=== PATIENT | female | born 1965 | race Caucasian/White ===

== ENCOUNTER 2017-11-26 17:14 | Inpatient (IN) | payer BC ==
[~2017-11-26] VITALS: Ht 177.8 cm; Wt 85.0 kg
[2017-11-26] VITALS (13 sets, daily range): BP systolic 113–138; BP diastolic 58–73; PULSE 101–118; RESP 14–32; TEMP 98–100.2; O2SAT 91–100
[2017-11-26] MEDS: ETOMIDATE 40 MG/20 ML VIAL ONE ×2 (17:20→17:26)
[2017-11-26] MEDS: ETOMIDATE 20 MG/10 ML VIAL IV PUSH ONE ×2 (17:30→19:13)
[2017-11-26] MEDS ORDERED: SUCCINYLCHOLINE CHLORIDE 100 MG/5 ML SYRINGE IV PUSH ONE (17:30)
[2017-11-26] MEDS ORDERED: LORazepam 2 MG/ML VIAL IV PUSH ONE (17:45)
[2017-11-26] MEDS ORDERED: MIDAZOLAM HCL 5 MG/ML VIAL (1 ML) ONE (17:45)
[2017-11-26] MEDS ORDERED: PROPOFOL 500 MG/50 ML INJ 50 ML ONE (17:46)
[2017-11-26 18:26] LABS: AUTOMATED NEUTROPHIL # 13.3 TH/MM3 (1.8-7.7); BASOPHIL % 0.2 % (0.0-2.0); HEMATOCRIT 43.8 % (35.0-46.0); HEMOGLOBIN 14.7 GM/DL (11.6-15.3); LYMPH % 7.9 % (9.0-44.0); LYMPHOCYTE # 1.2 TH/MM3 (1.0-4.8); MEAN CELL VOLUME 100.9 FL (80.0-100.0); MEAN CORPUSCULAR HEMOGLOBIN 33.9 PG (27.0-34.0); MEAN CORPUSCULAR HGB CONC 33.6 % (32.0-36.0); MEAN PLATELET VOLUME 8.1 FL (7.0-11.0); MONO % 6.6 % (0.0-8.0); NEUT % 85.3 % (16.0-70.0); PLATELET COUNT 374 TH/MM3 (150-450); RED BLOOD COUNT 4.34 MIL/MM3 (4.00-5.30); RED CELL DISTRIBUTION WIDTH 12.8 % (11.6-17.2); WHITE BLOOD COUNT 15.6 TH/MM3 (4.0-11.0)
[2017-11-26 18:27] LABS: BILIRUBIN, URINE NEG (NEG); BLOOD, URINE NEG (NEG); GLUCOSE,URINE NEG (NEG); KETONE, URINE NEG (NEG); NITRITE,URINE NEG (NEG); PH, URINE 5.5 (5.0-8.5); URINE COLOR LIGHT-YELLOW (YELLW/STRAW); URINE LEUKOCYTE ESTERASE NEG (NEG)
--- NOTE | 2017-11-26 18:27 | RADRPT ---
EXAM DATE/TIME: 11/26/2017 17:58 [facility] COMPARISON: No previous studies available for comparison. INDICATIONS : Post procedure. Pt intubated. MEDICAL HISTORY : None. SURGICAL HISTORY : None. ENCOUNTER: Initial ACUITY: 1 day PAIN SCORE: Non-responsive. LOCATION: Bilateral chest FINDINGS: A single view of the chest demonstrates left basilar consolidation. Right lung clear. Heart normal in size. Endotracheal tube 2.5 cm above the abi. Nasogastric tube tip in stomach. Osseous structure s are intact. CONCLUSION: 1. Adequate placement of endotracheal tube. 2. Left basal consolidation. Massimo Ervin MD on November 26, 2017 at 18:23 Board Certified Radiologist. This report was verified electronically.
[2017-11-26 18:32] LABS: INTERNATIONAL NORMALIZED RATIO 1.1 RATIO; PROTHROMBIN TIME - PATIENT 11.1 SEC (9.8-11.6)
[2017-11-26 18:42] LABS: CALCIUM 7.8 MG/DL (8.5-10.1); CHLORIDE 106 MEQ/L (98-107); SODIUM (NA) 143 MEQ/L (136-145)
[2017-11-26] MEDS ORDERED: FOLI400T PO (19:08)
[2017-11-26] MEDS ORDERED: VITA100T54 PO (19:08)
--- NOTE | 2017-11-26 19:12 | PD ---
HPI Chief Complaint: Altered Mental Status Time Seen by Provider: 17:26 Travel History International Travel<30 days: No Contact w/Intl Traveler<30days: No Traveled to known affect area: No History of Present Illness HPI 52-year-old female with right in by EMS from home for altered mental status. Patient's reported patient has been drinking alcohol all night last night. Patient started having altered mental status since last night. Patient' s is not sure of any other drugs involved. EMS was called. Patient was found to be very lethargic. Narcan IV was given. No response to Narcan. Patient was brought to the ED for evaluation. Upon arrival patient is unresponsive. No medical history was able to be obtained. [facility] Past Medical History Medical History: Unable to Obtain Diminished Hearing: No Tetanus Vaccination: Unknown Influenza Vaccination: No ?: Unknown Past Surgical History Surgical History: Unable to Obtain Social History Alcohol Use: Yes (ETOH ABUSE) Tobacco Use: No (UNRESPONSIVE ) Substance Use: No (UNKNOWN) Allergies-Medications (Allergen,Severity, Reaction): Coded Allergies: No Known Allergies (Unverified , 11/26/17) Review of Systems ROS Limitations: Altered Mental Status Physical Exam Narrative GENERAL: Well-nourished, well-developed patient. SKIN: Focused skin assessment warm/dry. HEAD: Normocephalic. EYES: No scleral icterus. No injection or drainage. Pupils 2 mm equal reactive. NECK: Supple, trachea midline. No JVD or lymphadenopathy. CARDIOVASCULAR: Regular rate and rhythm without murmurs, gallops, or rubs. RESPIRATORY: Breath sounds equal bilaterally. No accessory muscle use. Patient with agonal respiration. O2 saturation 89% on 100% nonrebreathing mask. GASTROINTESTINAL: Abdomen soft, non-tender, nondistended. MUSCULOSKELETAL: No cyanosis, or edema. BACK: Nontender without obvious deformity. No CVA tenderness. Neurologic exam: Patient is unresponsive. Data Data Last Documented VS Vital Signs Date Time Temp Pulse Resp B/P (MAP) Pulse Ox O2 Delivery O2 Flow Rate FiO2 11/26/17 18:43 95 60 11/26/17 17:58 101 18 138/73 (94) 11/26/17 17:25 Ventilator 11/26/17 17:17 98.0 Orders Orders Etomidate Inj (Amidate Inj) (11/26/17 17:20) Etomidate Inj (Amidate Inj) (11/26/17 17:30) Succinylcholine Inj (Quelicin Inj) (11/26/17 17:30) Midazolam Inj (Versed Inj) (11/26/17 17:45) Lorazepam Inj (Ativan Inj) (11/26/17 17:45) Propofol 500 Mg/50 Ml Inj (Diprivan 500 (11/26/17 17:46) Electrocardiogram (11/26/17 17:30) Complete Blood Count With Diff (11/26/17 17:30) Comprehensive Metabolic Panel (11/26/17 17:30) Creatine Kinase (Cpk) (11/26/17 17:30) Troponin I (11/26/17 17:30) Prothrombin Time / Inr (Pt) (11/26/17:30) Act Partial Throm Time (Ptt) (11/26/17 17:30) Urinalysis - C+S If Indicated (11/26/17 17:30) Beta Hcg (Quant/Titer) (11/26/17 17:30) Thyroid Stimulating Hormone (11/26/17 17:30) Chest, Single Ap (11/26/17 17:30) Ct Brain W/O Iv Contrast(Rout) (11/26/17 17:30) Drug Screen, Random Urine (11/26/17 17:30) Alcohol (Ethanol) (11/26/17 17:30) Salicylates (Aspirin) (11/26/17 17:30) Tylenol (Acetaminophen) (11/26/17 17:30) Urinary Catheter Insert/Apply (11/26/17 18:37) Labs Laboratory Tests Test 11/26/17 17:25 11/26/17 18:00 White Blood Count 15.6 TH/MM3 Red Blood Count 4.34 MIL/MM3 Hemoglobin 14.7 GM/DL Hematocrit 43.8 % Mean Corpuscular Volume 100.9 FL Mean Corpuscular Hemoglobin 33.9 PG Mean Corpuscular Hemoglobin Concent 33.6 % Red Cell Distribution Width 12.8 % Platelet Count 374 TH/MM3 Mean Platelet Volume 8.1 FL Neutrophils (%) (Auto) 85.3 % Lymphocytes (%) (Auto) 7.9 % Monocytes (%) (Auto) 6.6 % Eosinophils (%) (Auto) 0.0 % Basophils (%) (Auto) 0.2 % Neutrophils # (Auto) 13.3 TH/MM3 Lymphocytes # (Auto) 1.2 TH/MM3 Monocytes # (Auto) 1.0 TH/MM3 Eosinophils # (Auto) 0.0 TH/MM3 Basophils # (Auto) 0.0 TH/MM3 CBC Comment DIFF FINAL Differential Comment Prothrombin Time 11.1 SEC Prothromb Time International Ratio 1.1 RATIO Activated Partial Thromboplast Time 25.0 SEC Calcium Level 7.8 MG/DL Sodium Level 143 MEQ/L Potassium Level 3.7 MEQ/L Chloride Level 106 MEQ/L Urine Color LIGHT-YELLOW Urine Turbidity CLEAR Urine pH 5.5 Urine Specific [place] 1.004 Urine Protein NEG mg/dL Urine Glucose (UA) NEG mg/dL Urine Ketones NEG mg/dL Urine Occult Blood NEG Urine Nitrite NEG Urine Bilirubin NEG Urine Urobilinogen LESS THAN 2.0 MG/DL Urine Leukocyte Esterase NEG Microscopic Urinalysis Comment CULT NOT INDICATED Urine Opiates Screen NEG Urine Barbiturates Screen NEG Urine Amphetamines Screen NEG Urine Benzodiazepines Screen NEG Urine Cocaine Screen NEG Urine Cannabinoids Screen NEG MDM Medical Decision Making Medical Screen Exam Complete: Yes Emergency Medical Condition: Yes Interpretation(s) Last Impressions Chest X-Ray 11/26/17 1730 Signed Impressions: Service Date/Time: Sunday, November 26, 2017 17:58 - CONCLUSION: 1. Adequate placement of endotracheal tube. 2. Left basal consolidation. Massimo Ervin MD CBC WBC 15.6. Hemoglobin 14.7 hematocrit 43.8. MCV 100.9. 85 neutrophil. Urine drug screen negative. UA is negative. Differential Diagnosis Differential diagnosis including respiratory failure, drug overdose, TIA, CVA, electrolyte imbalance, dehydration. Narrative Course 52-year-old female was found unresponsive at home. EMS was called. Patient with gait was given Narcan without relief. Patient was intubated in the ED. Rocephin 1 g IV. Vancomycin 1 g IV. Critical Care Narrative Aggregate critical care time was 60 minutes. Time to perform other separately billable procedures was not included in the critical care time. My time did not include minutes spent treating any other patients simultaneously or on activities that did not directly contribute to the patient's treatment. The services I provided to this patient were to treat and/or prevent clinically significant deterioration that could result in: I provided critical care services requiring my management, as noted below: Chart data review, documentation time, medication orders and management, vital sign assessments/reviewing monitor data, ordering and reviewing lab tests, ordering and interpreting/reviewing x-rays and diagnostic studies, care of the patient and discussion of the patient with the admitting physicians. Diagnosis Primary Impression: Respiratory failure Qualified Codes: J96.01 - Acute respiratory failure with hypoxia Additional Impression: Pneumonia Qualified Codes: J18.1 - Lobar pneumonia, unspecified organism Admitting Information Admitting Physician Requests: Admit Aaron Hopper MD Nov 26, 2017 19:12
[2017-11-26] MEDS ORDERED: cefTRIAXone INJ 1,000 MG in SODIUM CHLORIDE 0.9% INJ 100 ML IV ONE (19:15)
[2017-11-26] MEDS ORDERED: VANCOMYCIN INJ 1,000 MG in SODIUM CHLOR 0.9% 250 ML INJ 250 ML IV ONE (19:15)
[2017-11-26] MEDS: SODIUM CHLOR 0.9% 1000 ML INJ 1,000 ML IV SCH (19:28)
[2017-11-26] MEDS ORDERED: POTASSIUM CHLOR 40 MEQ PREMIX 100 ML IV PRN ×2 (19:30)
[2017-11-26] MEDS ORDERED: POTASSIUM CHLOR 20 MEQ PREMIX 100 ML IV PRN ×2 (19:30)
[2017-11-26] MEDS ORDERED: DEXTROSE 50% IN WATER 50 ML VIAL(D50) IV PUSH PRN (19:30)
[2017-11-26] MEDS ORDERED: ONDANSETRON HCL 4 MG/2 ML VIAL IV PUSH PRN (19:30)
[2017-11-26] MEDS ORDERED: MAGNESIUM OXIDE 400 MG TAB PO PRN (19:30)
[2017-11-26] MEDS ORDERED: LACTULOSE SYRUP 20 GM/30 ML CUP PO PRN (19:30)
[2017-11-26] MEDS ORDERED: MAGNESIUM SULFATE INJ 2 GM in SODIUM CHLORIDE 0.9% INJ 96 ML IV PRN (19:30)
[2017-11-26] MEDS ORDERED: NURSING INFORMATION XX SCH (19:30)
[2017-11-26] MEDS ORDERED: CHLORHEXIDINE GLUCONATE 2 % 1 PACK (2 CLOTHS) TOP PRN (19:30)
[2017-11-26] MEDS ORDERED: PROPOFOL 1000 MG/100 ML INJ 100 ML IV PRN (19:30)
[2017-11-26] MEDS ORDERED: POTASSIUM PHOSPHATE MONOBASIC 500 MG TAB PO PRN (19:30)
[2017-11-26] MEDS ORDERED: fentaNYL DRIP 250 ML IV PRN (19:30)
[2017-11-26] MEDS ORDERED: MAGNESIUM HYDROXIDE SUSP 30 ML CUP PO PRN (19:30)
[2017-11-26] MEDS ORDERED: BISACODYL 10 MG SUPP RECTAL PRN (19:30)
[2017-11-26] MEDS ORDERED: MAGNESIUM SULFATE INJ 4 GM in SODIUM CHLORIDE 0.9% INJ 92 ML IV PRN (19:30)
[2017-11-26] MEDS ORDERED: POTASSIUM PHOSPHATE INJ 30 MMOL in SODIUM CHLOR 0.9% 250 ML INJ 250 ML IV PRN (19:30)
[2017-11-26] MEDS ORDERED: POTASSIUM PHOSPHATE MONOBASIC 500 MG TAB PO/TUBE PRN (19:30)
[2017-11-26] MEDS ORDERED: SODIUM PHOSPHATE INJ 30 MMOL in SODIUM CHLOR 0.9% 250 ML INJ 240 ML IV PRN (19:30)
[2017-11-26] MEDS ORDERED: RESP: ALBUTEROL 2.5 MG/IPRATROPIUM 0.5 MG NEB (PRN) INH (19:30)
[2017-11-26] MEDS ORDERED: SENNOSIDES 8.6 MG TAB PO PRN (19:30)
--- NOTE | 2017-11-26 19:31 | HHI.HP ---
[facility] Service Critical Care Medicine Primary Care Physician Maurice Serrano M.D. Admission Diagnosis Respiratory failure. Pneumonia. Diagnosis: Chief Complaint: altered mental status Travel History International Travel<30 Days: No Contact w/Intl Traveler <30 Da: No Traveled to Known Affected Are: No History of Present Illness This is a 52-year-old female who is brought in by EMS for altered mental status. Per the ER physician's note, the agents has been reported that she had been drinking alcohol all last night and then has not woken up since that time. The patient's was unclear if there were other drugs involved per the ER note. On arrival to the emergency department, the patient was lethargic. IV Narcan did not improve the patient's mental status. Due to her acute obtundation as well as hypercarbic and hypoxic respiratory failure, she was emergently intubated in the emergency department. On my evaluation, the patient is intubated and obtunded. No additional information is available from the patient. Review of systems is unobtainable. Laboratory evidence the emergency department is significant for white blood cell count 15,000, anion gap elevated of 16, bicarb of 20, AST/ALT 68/27, GGT 93, CK of 1879, CK-MB of 16.3 with a normal MB ratio, troponin less than 0.02. Review of Systems ROS Limitations: Clinical Condition, Intubated, Altered Mental Status Past Family Social History Allergies: Coded Allergies: No Known Allergies (Unverified , 11/26/17) Past Medical History Unknown unobtainable secondary to clinical condition the patient Past Surgical History Unknown and unobtainable secondary clinical condition the patient Reported Medications Unknown unobtainable secondary to the clinical condition the patient Active Ordered Medications See MAR Family History Unknown and unobtainable secondary to clinical condition the patient Social History Per chart review, positive for EtOH. Otherwise unobtainable due to her clinical condition. Physical Exam Vital Signs Vital Signs Date Time Temp Pulse Resp B/P (MAP) Pulse Ox O2 Delivery O2 Flow Rate FiO2 11/26/17 19:09 118 16 121/61 (81) 95 Ventilator 60 11/26/17 18:43 95 60 11/26/17 17:58 101 18 138/73 (94) 98 11/26/17 17:25 108 14 132/69 (90) 99 Ventilator 60 11/26/17 17:23 60 11/26/17 17:20 100 Non-Rebreather 100 11/26/17 17:17 98.0 113 32 122/63 (82) 91 Physical Exam GENERAL: Middle-aged appearing female, lying in bed, intubated, sedated, obtunded HEENT: Normocephalic. Atraumatic. Pupils equal, round, reactive, conjugate. Mucous membranes are moist NECK: Trachea is midline. There is no JVD. CHEST: Equal chest rise. PRVC mode of ventilation. PEEP of 5. Rate of 15, tidal volume 500, FiO2 40%. SPO2 96%. CARDIOVASCULAR: Normal rate, regular rhythm. Sinus by telemetry. ABDOMEN: Soft, nontender, nondistended. No guarding. MUSCULOSKELETAL: Pulses 2+. No peripheral edema. NEUROLOGICAL: RASS -4. Intermittently moves all extremities spontaneously. Does not withdraw to pain. Does not follow commands. Positive corneals. Positive cough. Positive gag. Pupils are 2 mm, briskly reactive bilaterally Laboratory Laboratory Tests Test 11/26/17 17:25 11/26/17 18:00 White Blood Count 15.6 Red Blood Count 4.34 Hemoglobin 14.7 Hematocrit 43.8 Mean Corpuscular Volume 100.9 Mean Corpuscular Hemoglobin 33.9 Mean Corpuscular Hemoglobin Concent 33.6 Red Cell Distribution Width 12.8 Platelet Count 374 Mean Platelet Volume 8.1 Neutrophils (%) (Auto) 85.3 Lymphocytes (%) (Auto) 7.9 Monocytes (%) (Auto) 6.6 Eosinophils (%) (Auto) 0.0 Basophils (%) (Auto) 0.2 Neutrophils # (Auto) 13.3 Lymphocytes # (Auto) 1.2 Monocytes # (Auto) 1.0 Eosinophils # (Auto) 0.0 Basophils # (Auto) 0.0 CBC Comment DIFF FINAL Differential Comment Prothrombin Time 11.1 Prothromb Time International Ratio 1.1 Activated Partial Thromboplast Time 25.0 Calcium Level 7.8 Sodium Level 143 Potassium Level 3.7 Chloride Level 106 Salicylates Level LESS THAN 1.7 Urine Color LIGHT-YELLOW Urine Turbidity CLEAR Urine pH 5.5 Urine Specific [place] 1.004 Urine Protein NEG Urine Glucose (UA) NEG Urine Ketones NEG Urine Occult Blood NEG Urine Nitrite NEG Urine Bilirubin NEG Urine Urobilinogen LESS THAN 2.0 Urine Leukocyte Esterase NEG Microscopic Urinalysis Comment CULT NOT INDICATED Urine Opiates Screen NEG Urine Barbiturates Screen NEG Urine Amphetamines Screen NEG Urine Benzodiazepines Screen NEG Urine Cocaine Screen NEG Urine Cannabinoids Screen NEG Result Diagram: 11/26/17 1725 11/26/17 1725 Imaging Last Impressions Head CT 11/26/171729 Signed Impressions: Service Date/Time: Sunday, November 26, 2017 21:12 - CONCLUSION: No acute intracranial disease. Massimo Ervin MD Chest X-Ray 11/26/171729 Signed Impressions: Service Date/Time: Sunday, November 26, 2017 17:58 - CONCLUSION: 1. Adequate placement of endotracheal tube. 2. Left basal consolidation. Massimo Ervin MD Septic Shock Reassessment Septic shock perfusion: reassessment completed Caprini VTE Risk Assessment Caprini VTE Risk Assessment: Mod/High Risk (score >= 2) Caprini Risk Assessment Model Point Value = 1 Point Value = 2 Point Value = 3 Point Value = 5 Age 41-60 Minor surgery BMI > 25 kg/m2 Swollen legs Varicose veins or History of unexplained or recurrent spontaneous Oral contraceptives or hormone replacement Sepsis (< 1 month) Serious lung disease, including pneumonia (< 1 month) Abnormal pulmonary function Acute myocardial infarction Congestive heart failure (< 1 month) History of inflammatory bowel disease Medical patient at bed rest Age 61-74 Arthroscopic surgery Major open surgery (> 45 min) Laparoscopic surgery (> 45 min) Malignancy Confined to bed (> 72 hours) Immobilizing plaster cast Central venous access Age >= 75 History of VTE Family history of VTE Factor V Leiden Prothrombin [id number] Lupus anticoagulant Anticardiolipin antibodies Elevated serum homocysteine Heparin-induced thrombocytopenia Other congenital or acquired thrombophilia Stroke (< 1 month) Elective arthroplasty Hip, pelvis, or leg fracture Acute spinal cord injury (< 1 month) Prophylaxis Regimen Total Risk Factor Score Risk Level Prophylaxis Regimen 0-1 Low Early ambulation 2 Moderate Order ONE of the following: *Sequential Compression Device (SCD) *Heparin 5000 units SQ BID 3-4 Higher Order ONE of the following medications: *Heparin 5000 units SQ TID *Enoxaparin/Lovenox 40 mg SQ daily (WT < 150 kg, CrCl > 30 mL/min) *Enoxaparin/Lovenox 30 mg SQ daily (WT < 150 kg, CrCl > 10-29 mL/min) *Enoxaparin/Lovenox 30 mg SQ BID (WT < 150 kg, CrCl > 30 mL/min) AND/OR *Sequential Compression Device (SCD) 5 or more Highest Order ONE of the following medications: *Heparin 5000 units SQ TID (Preferred with Epidurals) *Enoxaparin/Lovenox 40 mg SQ daily (WT < 150 kg, CrCl > 30 mL/min) *Enoxaparin/Lovenox 30 mg SQ daily (WT < 150 kg, CrCl > 10-29 mL/min) *Enoxaparin/Lovenox 30 mg SQ BID (WT < 150 kg, CrCl > 30 mL/min) AND *Sequential Compression Device (SCD) Assessment and Plan Assessment and Plan Assessment: 52-year-old female with history of alcohol abuse who presents with acute toxic encephalopathy, acute hypoxic and hypercarbic respiratory failure, acute rhabdomyolysis, and acute anion gap metabolic acidosis. She remains critically ill. Will fluid hydrate her for her rhabdomyolysis. Calculated serum osmolarity 295 and we will await measured osmolarity to make sure there is not osmolar gap. Will empirically start IV thiamine given her suggestive history of alcohol abuse along with elevated GGT and transaminases. Remains critically ill. Plan by systems: Neurologic: Toxic encephalopathy Alcohol abuse Propofol and fentanyl for goal RASS -2 Frequent neurochecks Avoid long-acting sedatives Watch for alcohol withdrawal May need p.o. Librium or p.o. Valium to prevent delirium tremens CT brain 11/26- for acute disease MRI EEG Respiratory: Acute hypoxic and hypercarbic respiratory failure Aspiration pneumonia Wean FiO2 for goal SPO2 greater than 90% No weaning mechanical ventilation until neuro exam improves Nebs Head of bed elevated Vent bundle Cardiovascular: Continue telemetry Renal: Place Amaury in monitor I's and O's -- Strict I/Os FEN/GI: Acute rhabdomyolysis Possible alcoholic hepatitis N.p.o. ICU electrolyte protocol Trend CK Aggressive hydration Frequent urine output monitoring Daily BMP Heme/ID: Aspiration pneumonia Community-acquired, no suspicion for resistant bacteria Start Unasyn IV Follow-up sputum culture Follow-up blood cultures Daily CBC Endocrine: Hyperglycemia of critical illness -- SSI, medium scale, every 6 Prophylaxis: GI Prophylaxis Pepcid DVT Prophylaxis -- SCDs Lovenox Lines: Peripheral IVs are adequate at this time Place Amaury Dispo: Admit to ICU. Critically ill. This patient remains critically ill with one or more organ systems which are or may become a threat to life. I have spent in excess of 44 minutes discontinuously in the care and management of this patient. This time is exclusive of procedures, and includes, but is not limited to, evaluation of the patient, review of the medical record, discussions with family, consultants, nursing staff, or respiratory therapy, and documentation in the medical record. Deandre Muller MD Nov 26, 2017 19:31
[2017-11-26 19:50] LABS: ALBUMIN 3.5 GM/DL (3.4-5.0); ALKALINE PHOSPHATASE 79 U/L (45-117); ALT (GPT) 27 U/L (10-53); AST (GOT) 68 U/L (15-37); BICARBONATE 20.6 MEQ/L (21.0-32.0); BLOOD UREA NITROGEN 7 MG/DL (7-18); CREATININE 0.92 MG/DL (0.50-1.00); GLOMERULAR FILTRATION RATE 65 ML/MIN (>89); GLUCOSE,RANDOM 115 MG/DL (74-106); TOTAL PROTEIN 7.3 GM/DL (6.4-8.2)
[2017-11-26 19:51] LABS: ACETAMINOPHEN LESS THAN 2.0 MCG/ML (10.0-30.0); TROPONIN I LESS THAN 0.02 NG/ML (0.02-0.05)
[2017-11-26] MEDS: RESP: ALBUTEROL 2.5 MG/IPRATROPIUM 0.5 MG NEB (SCH) INH (20:10)
[2017-11-26] MEDS: PROPOFOL 1000 MG/100 ML INJ 100 ML IV PRN (20:16)
[2017-11-26] MEDS: LACTATED RINGER'S 1000 ML INJ 1,000 ML IV SCH (20:41)
[2017-11-26] MEDS ORDERED: MULTIVITAMIN INJ 10 ML, THIAMINE INJ 100 MG, FOLIC ACID INJ 1 MG in SODIUM CHLOR 0.45% ... IV ONE (21:00)
--- NOTE | 2017-11-26 21:28 | RADRPT ---
EXAM DATE/TIME: 11/26/2017 21:12 [facility] COMPARISON: No previous studies available for comparison. INDICATIONS : Unresponsive,altered mental status RADIATION DOSE: 56.35 CTDIvol (mGy) MEDICAL HISTORY : Non-responsive. SURGICAL HISTORY : Non-responsive. ENCOUNTER: Initial ACUITY: 1 day PAIN SCALE: Non-responsive LOCATION: cranial TECHNIQUE: Multiple contiguous axial images were obtained of the head. Using automated exposure control and adj ustment of the mA and/or kV according to patient size, radiation dose was kept as low as reasonably a chievable to obtain optimal diagnostic quality images. DICOM format image data is available electro nically for review and comparison. FINDINGS: CEREBRUM: The ventricles are normal for age. No evidence of midline shift, mass lesion, hemorrhage or acute in farction. No extra-axial fluid collections are seen. POSTERIOR FOSSA: The cerebellum and brainstem are intact. The 4th ventricle is midline. The cerebellopontine angle i s unremarkable. EXTRACRANIAL: The visualized portion of the orbits is intact. SKULL: The calvaria is intact. No evidence of skull fracture. CONCLUSION: No acute intracranial disease. Massimo Ervin MD on November 26, 2017 at 21:25 Board Certified Radiologist. This report was verified electronically.
[2017-11-26] MEDS: CHLORHEXIDINE 0.12% (ORAL KIT) 15 ML CUP MT SCH (21:56)
[2017-11-26] MEDS: DOCUSATE SODIUM 50 MG/SENNA 8.6 MG TAB PO SCH (22:21)
[2017-11-26] MEDS: AMPICILLIN-SULBACTAM INJ 3 GM in SODIUM CHLORIDE 0.9% INJ 100 ML IV SCH (22:21)
[2017-11-26] MEDS: FAMOTIDINE 20 MG TAB PO SCH (22:21)
[2017-11-26] MEDS: ENOXAPARIN SODIUM 40 MG/0.4 ML SYRINGE SQ SCH (22:45)
[2017-11-26] MEDS: CHLORHEXIDINE GLUCONATE 2 % 1 PACK (2 CLOTHS) TOP SCH (22:45)
[2017-11-26] MEDS: INSULIN NovoLIN REGULAR SUPPLEMENTAL SCALE SQ SCH (23:17)
[2017-11-27] VITALS (21 sets, daily range): BP systolic 122–156; BP diastolic 60–88; PULSE 75–132; RESP 14–32; TEMP 98.3–100.7; O2SAT 95–100
--- NOTE | 2017-11-27 00:09 | EKG ---
Date Performed: 11/26/2017 Time Performed: 18:30:54 PTAGE: 52 years EKG: Sinus rhythm MARKED LEFT AXIS DEVIATION POSSIBLE ANTERIOR MYOCARDIAL INFARCTION ABNORMAL ECG NO PREVIOUS TRACING DOCTOR: Amado Sanchez Interpretating Date/Time 11/27/2017 00:07:47
[2017-11-27] MEDS: PROPOFOL 1000 MG/100 ML INJ 100 ML IV PRN ×5 (00:18→12:09)
[2017-11-27 01:11] LABS: TROPONIN I LESS THAN 0.02 NG/ML (0.02-0.05)
[2017-11-27] MEDS: SODIUM CHLOR 0.9% 1000 ML INJ 1,000 ML IV SCH ×3 (02:47→18:43)
[2017-11-27] MEDS: THIAMINE INJ 100 MG in SODIUM CHLORIDE 0.9% INJ 100 ML IV SCH (02:48)
[2017-11-27] MEDS: AMPICILLIN-SULBACTAM INJ 3 GM in SODIUM CHLORIDE 0.9% INJ 100 ML IV SCH ×4 (02:48→20:08)
[2017-11-27 03:07] LABS: BACTERIA, URINE FEW /hpf; BILIRUBIN, URINE NEG (NEG); BLOOD, URINE NEG (NEG); GLUCOSE,URINE NEG (NEG); KETONE, URINE 80 mg/dL (NEG); MUCUS URINE FEW /lpf (OCC); NITRITE,URINE NEG (NEG); PH, URINE 5.5 (5.0-8.5); URINE COLOR YELLOW (YELLW/STRAW); URINE LEUKOCYTE ESTERASE LARGE (NEG); WHITE BLOOD CELL CLUMPS FEW
[2017-11-27 03:26] LABS: BICARBONATE 16.5 MEQ/L (21.0-32.0); CALCIUM 7.7 MG/DL (8.5-10.1); CREATININE 0.65 MG/DL (0.50-1.00)
[2017-11-27] MEDS ORDERED: DEXTROSE 5% IV ONE ×2 (03:30)
[2017-11-27] MEDS ORDERED: WATER IV ONE ×2 (03:30)
[2017-11-27] MEDS ORDERED: PYRIDOXINE HCL 100 MG/ML VIAL IV ONE ×2 (03:30)
[2017-11-27] MEDS ORDERED: FOMEPIZOLE IV ONE ×2 (03:30)
[2017-11-27] MEDS: RESP: ALBUTEROL 2.5 MG/IPRATROPIUM 0.5 MG NEB (SCH) INH ×4 (03:47→21:19)
--- NOTE | 2017-11-27 03:48 | HHI.CCPN ---
Subjective Remarks/Hospital Course Hospital Course: This is a 52-year-old female who is brought in by EMS for altered mental status. Per the ER physician's note, the agents has been reported that she had been drinking alcohol all last night and then has not woken up since that time. The patient's was unclear if there were other drugs involved per the ER note. On arrival to the emergency department, the patient was lethargic. IV Narcan did not improve the patient's mental status. Due to her acute obtundation as well as hypercarbic and hypoxic respiratory failure, she was emergently intubated in the emergency department. On my evaluation, the patient is intubated and obtunded. No additional information is available from the patient. Review of systems is unobtainable. Laboratory evidence the emergency department is significant for white blood cell count 15,000, anion gap elevated of 16, bicarb of 20, AST/ALT 68/27, GGT 93, CK of 1879, CK-MB of 16.3 with a normal MB ratio, troponin less than 0.02. Subjective: 11/27: patient is not clinically improving as we would expect. serum osmolality came back at 372 and calculated is 294, with an osmolar gap of 78. Lactate is elevated at 3.6. Bicarb is worsening to 16 with an anion gap of 16. I called and spoke at length to the : the patient likes to hide her vodka in juice bottles, so it is unclear to him exactly what she was drinking, but he thought it was vodka. there is no antifreeze in the home at all. the located all bottles of rubbing alcohol and fingernail turkmen remover and states they are full and there are no other empty bottles in the household currently. states she has no access to methanol and no access he knows of to moonshine. I did take a urine sample and examined it under Fu lamp and it appears to weakly fluoresce. Oxylate crystals are negative on u/a. BHB is positive at 0.8, suggesting this could be isopropyl alcohol ingestion. Discussed at length with poison control: given her worsening acidosis and her symptoms as well as an unexplained osmolar gap, we are going to empirically treat her for toxic alcohol ingestion/toxicity. We do not routinely carry fomepazole in the pharmacy, but we have located 3 vials and will start 15mg/kg iv load followed by 10mg/kg iv q12h. will check serial osm and osm gap. iv thiamine, pyridoxime , leucovorin. very critically ill. minimal improvements over last 12 hours. discussed condition with and reinforced the severity of her illness. Objective Vital Signs Date Time Temp Pulse Resp B/P (MAP) Pulse Ox O2 Delivery O2 Flow Rate FiO2 11/27/17 02:00 95 11/27/17 01:40 99 40 11/27/17 00:00 98.8 14 122/67 (85) 11/26/17 21:00 Ventilator Result Diagram: 11/26/17 6900 11/26/17 0890 Other Results Laboratory Tests Test 11/26/17 20:50 11/27/17 02:15 Blood Gas Puncture Site RT RADIAL RT RADIAL Blood Gas Patient Temperature 98.0 98.6 Blood Gas HCO3 21 mmol/L (22-26) 22 mmol/L (22-26) Blood Gas Base Excess -3.9 mmol/L (-2-2) -2.8 mmol/L (-2-2) Blood Gas Oxygen Saturation 93 % (90-100) 94 % (90-100) Arterial Blood pH 7.32 (7.380-7.420) 7.33 (7.380-7.420) Arterial Blood Partial Pressure CO2 42 mmHg (38-42) 43 mmHg (38-42) Arterial Blood Partial Pressure O2 83 mmHG (61-120) 88 mmHg (61-120) Arterial Blood Oxygen Content 19.5 Vol % (12.0-20.0) 18.4 Vol % (12.0-20.0) Arterial Blood Carboxyhemoglobin 1.0 % (0-4) 0.7 % (0-4) Arterial Blood Methemoglobin 0.8 % (0-2) 1.4 % (0-2) Blood Gas Hemoglobin 14.9 G/DL (12.0-16.0) 14.0 G/DL (12.0-16.0) Oxygen Delivery Device VENTILATOR VENTILATOR Blood Gas Ventilator Setting PRVC/AC Blood Gas Inspired Oxygen 60 % 40 % Imaging Last Impressions Head CT 11/26/17 0460 Signed Impressions: Service Date/Time: Sunday, November 26, 2017 21:12 - CONCLUSION: No acute intracranial disease. Massimo Ervin MD Chest X-Ray 11/26/17 1774 Signed Impressions: Service Date/Time: Sunday, November 26, 2017 17:58 - CONCLUSION: 1. Adequate placement of endotracheal tube. 2. Left basal consolidation. Massimo Ervin MD Objective Remarks GENERAL: Middle-aged appearing female, lying in bed, intubated, sedated, obtunded HEENT: Normocephalic. Atraumatic. Pupils equal, round, reactive, conjugate. Mucous membranes are moist NECK: Trachea is midline. There is no JVD. CHEST: Equal chest rise. PRVC mode of ventilation. PEEP of 5. Rate of 15, tidal volume 500, FiO2 40%. SPO2 99%. CARDIOVASCULAR: Normal rate, regular rhythm. Sinus by telemetry. ABDOMEN: Soft, nontender, nondistended. No guarding. MUSCULOSKELETAL: Pulses 2+. No peripheral edema. NEUROLOGICAL: RASS -4. Intermittently moves all extremities spontaneously. withdraws to pain. Does not follow commands. Positive corneals. Positive cough. Positive gag. Pupils are 2 mm, briskly reactive bilaterally A/P Assessment and Plan Assessment: 52-year-old female with history of alcohol abuse who presents with acute toxic encephalopathy, acute hypoxic and hypercarbic respiratory failure, acute rhabdomyolysis, and acute anion gap metabolic acidosis. She remains critically ill. Will treat for presumed toxic alcohol ingestion given osmolar gap, ?fluorescent urine, + ketones and acetone biproducts in the serum, and unexplained persistent metabolic acidosis. acute rhabdo persistent and uptrending: will continue to trend CK. appreciate poison control input. will give fomepazole until we no longer have any supply in pharmacy or until osmolar gap normalizes. Remains critically ill. Plan by systems: Neurologic: Toxic encephalopathy Alcohol abuse Presumed Toxic Alcohol ingestion: suspect isopropyl alcohol Propofol and fentanyl for goal RASS -2 Frequent neurochecks Avoid long-acting sedatives Watch for alcohol withdrawal May need p.o. Librium or p.o. Valium to prevent delirium tremens CT brain 11/26- for acute disease MRI EEG fomepazole 15mg/kg load, followed by 10mg/kg iv q12h. per poison control recommendations: hold off on iv ethanol infusion serial BMP, osm q6h. continue therapy until osmolar gap closes. Respiratory: Acute hypoxic and hypercarbic respiratory failure Aspiration pneumonia Wean FiO2 for goal SPO2 greater than 90% No weaning mechanical ventilation until neuro exam improves Nebs Head of bed elevated Vent bundle Cardiovascular: Continue telemetry Renal: Place Re[place] in monitor I's and O's -- Strict I/Os FEN/GI: Acute rhabdomyolysis- worsening Possible alcoholic hepatitis Acute metabolic acidosis lactic acidosis Osmolar gap suspected isopropyl alcohol ingestion/toxicity/overdose N.p.o. ICU electrolyte protocol Trend CK Aggressive hydration Frequent urine output monitoring q6h lactate, osm, ck, bmp treat for suspected toxic alcohol ingestion until calculated osmolar gap improves. Heme/ID: Aspiration pneumonia Community-acquired, no suspicion for resistant bacteria Start Unasyn IV Follow-up sputum culture Follow-up blood cultures Daily CBC Endocrine: Hyperglycemia of critical illness -- SSI, medium scale, every 6 Prophylaxis: GI Prophylaxis Pepcid DVT Prophylaxis -- SCDs Lovenox Lines: Peripheral IVs are adequate at this time Place [place] Dispo: remain in ICU. Critically ill. This patient remains critically ill with one or more organ systems which are or may become a threat to life. I have spent in excess of 78 minutes discontinuously in the care and management of this patient. This time is exclusive of procedures, and includes, but is not limited to, evaluation of the patient, review of the medical record, discussions with family, consultants, nursing staff, or respiratory therapy, and documentation in the medical record. extensive time spent in discussion with as well as poison control, pharmacy, nursing, lab. Deandre Muller MD Nov 27, 2017 03:48
[2017-11-27] MEDS ORDERED: LEUCOVORIN CALCIUM 50 MG VIAL IV PUSH SCH (04:00)
[2017-11-27] MEDS: LEUCOVORIN INJ 50 MG in SODIUM CHLORIDE 0.9% INJ 50 ML IV SCH ×4 (04:01→21:36)
[2017-11-27] MEDS: LACTATED RINGER'S 1000 ML INJ 1,000 ML IV SCH ×3 (04:01→20:08)
--- NOTE | 2017-11-27 04:11 | PD.PROCEDR ---
Procedure Note Procedure Procedure: Arterial Line Placement Left radial arterial line Diagnosis: Toxic encephalopathy Indications: Need for serial arterial blood sampling Consent: Emergent Description of the Procedure: The left wrist was prepped and draped sterilely. 1% lidocaine was used for local anesthesia. The pulse was located and a needle was advanced into the artery. A 20 gauge, 12 cm catheter was advanced into the artery using a modified Seldinger technique. The catheter was sutured to the skin and a sterile dressing was applied. The catheter was connected to a pressure transducer and an arterial waveform was noted. There were no immediate complications noted. There was minimal EBL. I personally performed the procedure. Deandre Muller MD Nov 27, 2017 04:11
[2017-11-27 04:37] LABS: HEMATOCRIT 39.2 % (35.0-46.0); HEMOGLOBIN 13.4 GM/DL (11.6-15.3); MEAN CORPUSCULAR HEMOGLOBIN 34.2 PG (27.0-34.0); MEAN CORPUSCULAR HGB CONC 34.2 % (32.0-36.0); MEAN PLATELET VOLUME 7.7 FL (7.0-11.0); PLATELET COUNT 301 TH/MM3 (150-450); RED BLOOD COUNT 3.92 MIL/MM3 (4.00-5.30); RED CELL DISTRIBUTION WIDTH 12.7 % (11.6-17.2); WHITE BLOOD COUNT 20.7 TH/MM3 (4.0-11.0)
[2017-11-27 05:17] LABS: CALCIUM 7.2 MG/DL (8.5-10.1); CREATININE 0.56 MG/DL (0.50-1.00)
[2017-11-27] MEDS: INSULIN NovoLIN REGULAR SUPPLEMENTAL SCALE SQ SCH ×4 (05:32→23:48)
[2017-11-27 05:36] LABS: CALCIUM-PROTEIN CORRECTED 7.5 MG/DL (8.5-10.1); TOTAL PROTEIN 6.5 GM/DL (6.4-8.2)
[2017-11-27] MEDS: POTASSIUM CHLORIDE 25 MEQ EFFERVESCENT TAB PO PRN (05:55)
[2017-11-27] MEDS: DOCUSATE SODIUM 50 MG/SENNA 8.6 MG TAB PO SCH ×2 (09:09→21:36)
[2017-11-27] MEDS: MULTIVITAMIN TAB PO SCH (09:09)
[2017-11-27] MEDS: FAMOTIDINE 20 MG TAB PO SCH ×2 (09:09→21:36)
[2017-11-27] MEDS: CHLORHEXIDINE 0.12% (ORAL KIT) 15 ML CUP MT SCH ×2 (09:10→20:08)
[2017-11-27 10:55] LABS: BICARBONATE 24.4 MEQ/L (21.0-32.0); CALCIUM 7.8 MG/DL (8.5-10.1); CREATININE 0.46 MG/DL (0.50-1.00)
--- NOTE | 2017-11-27 12:01 | RADRPT ---
EXAM DATE/TIME: 11/27/2017 11:17 [facility] COMPARISON: CT BRAIN W/O CONTRAST, November 26, 2017, 21:12. INDICATIONS : Found unresponsive. MEDICAL HISTORY : None. ETOH abuse. SURGICAL HISTORY : None. ENCOUNTER: Initial ACUITY: 2 day PAIN SCORE: 0/10 LOCATION: cranial TECHNIQUE: Multiplanar, multisequence MRI of the brain was performed without contrast. FINDINGS: CEREBRUM: The ventricles are normal for age. No evidence of midline shift, mass lesion, hemorrhage or acute in farction. No extraaxial fluid collections are seen. The pituitary gland and suprasellar cistern are normal in configuration. WHITE MATTER: No significant signal abnormalities are seen in the white matter. POSTERIOR FOSSA: The cerebellum and brainstem are intact. The 4th ventricle is midline. The cerebellopontine angle is unremarkable. The cerebellar tonsils are normal in position. DIFFUSION IMAGING: No focal areas of restricted diffusion are seen. No evidence of acute infarction. EXTRACRANIAL: The visualized portions of the orbits and paranasal sinuses are unremarkable. CONCLUSION: Normal examination. Mariano Flaherty MD on November 27, 2017 at 11:57 Board Certified Radiologist. This report was verified electronically.
[2017-11-27] MEDS ORDERED: DEXTROSE 5% IV SCH ×2 (16:00)
[2017-11-27] MEDS ORDERED: WATER IV SCH ×2 (16:00)
[2017-11-27] MEDS ORDERED: FOMEPIZOLE IV SCH ×2 (16:00)
[2017-11-27 17:27] LABS: BICARBONATE 26.9 MEQ/L (21.0-32.0); CREATININE 0.5 MG/DL (0.50-1.00)
[2017-11-27] MEDS: ENOXAPARIN SODIUM 40 MG/0.4 ML SYRINGE SQ SCH (21:36)
[2017-11-27 23:36] LABS: BICARBONATE 29.9 MEQ/L (21.0-32.0); CALCIUM 8.1 MG/DL (8.5-10.1); CREATININE 0.55 MG/DL (0.50-1.00)
[2017-11-28] VITALS (16 sets, daily range): BP systolic 128–164; BP diastolic 66–84; PULSE 93–125; RESP 13–20; TEMP 98.4–99.2; O2SAT 92–97
[2017-11-28] MEDS: THIAMINE INJ 100 MG in SODIUM CHLORIDE 0.9% INJ 100 ML IV SCH (01:33)
[2017-11-28] MEDS: LACTATED RINGER'S 1000 ML INJ 1,000 ML IV SCH ×2 (03:22→15:32)
[2017-11-28] MEDS: AMPICILLIN-SULBACTAM INJ 3 GM in SODIUM CHLORIDE 0.9% INJ 100 ML IV SCH ×4 (03:22→21:06)
[2017-11-28] MEDS: LEUCOVORIN INJ 50 MG in SODIUM CHLORIDE 0.9% INJ 50 ML IV SCH (04:15)
[2017-11-28] MEDS: CHLORHEXIDINE GLUCONATE 2 % 1 PACK (2 CLOTHS) TOP SCH (04:16)
[2017-11-28] MEDS: RESP: ALBUTEROL 2.5 MG/IPRATROPIUM 0.5 MG NEB (SCH) INH ×4 (04:53→21:53)
[2017-11-28 05:42] LABS: HEMATOCRIT 38.1 % (35.0-46.0); HEMOGLOBIN 12.9 GM/DL (11.6-15.3); MEAN CELL VOLUME 100.5 FL (80.0-100.0); MEAN CORPUSCULAR HEMOGLOBIN 34.1 PG (27.0-34.0); MEAN CORPUSCULAR HGB CONC 33.9 % (32.0-36.0); MEAN PLATELET VOLUME 7.9 FL (7.0-11.0); PLATELET COUNT 230 TH/MM3 (150-450); RED BLOOD COUNT 3.79 MIL/MM3 (4.00-5.30); RED CELL DISTRIBUTION WIDTH 12.5 % (11.6-17.2); WHITE BLOOD COUNT 19.1 TH/MM3 (4.0-11.0)
[2017-11-28] MEDS: INSULIN NovoLIN REGULAR SUPPLEMENTAL SCALE SQ SCH ×3 (06:00→18:00)
[2017-11-28 06:02] LABS: BICARBONATE 26.9 MEQ/L (21.0-32.0); CALCIUM 8.5 MG/DL (8.5-10.1); CREATININE 0.48 MG/DL (0.50-1.00)
[2017-11-28] MEDS: CHLORHEXIDINE 0.12% (ORAL KIT) 15 ML CUP MT SCH ×2 (08:00→20:00)
--- NOTE | 2017-11-28 08:24 | HHI.CCPN ---
Subjective Remarks/Hospital Course Hospital Course: This is a 52-year-old female who is brought in by EMS for altered mental status. Per the ER physician's note, the agents has been reported that she had been drinking alcohol all last night and then has not woken up since that time. The patient's was unclear if there were other drugs involved per the ER note. On arrival to the emergency department, the patient was lethargic. IV Narcan did not improve the patient's mental status. Due to her acute obtundation as well as hypercarbic and hypoxic respiratory failure, she was emergently intubated in the emergency department. On my evaluation, the patient is intubated and obtunded. No additional information is available from the patient. Review of systems is unobtainable. Laboratory evidence the emergency department is significant for white blood cell count 15,000, anion gap elevated of 16, bicarb of 20, AST/ALT 68/27, GGT 93, CK of 1879, CK-MB of 16.3 with a normal MB ratio, troponin less than 0.02. Subjective: 11/27: patient is not clinically improving as we would expect. serum osmolality came back at 372 and calculated is 294, with an osmolar gap of 78. Lactate is elevated at 3.6. Bicarb is worsening to 16 with an anion gap of 16. I called and spoke at length to the : the patient likes to hide her vodka in juice bottles, so it is unclear to him exactly what she was drinking, but he thought it was vodka. there is no antifreeze in the home at all. the located all bottles of rubbing alcohol and fingernail greenlandic remover and states they are full and there are no other empty bottles in the household currently. states she has no access to methanol and no access he knows of to moonshine. I did take a urine sample and examined it under Fu lamp and it appears to weakly fluoresce. Oxylate crystals are negative on u/a. BHB is positive at 0.8, suggesting this could be isopropyl alcohol ingestion. Discussed at length with poison control: given her worsening acidosis and her symptoms as well as an unexplained osmolar gap, we are going to empirically treat her for toxic alcohol ingestion/toxicity. We do not routinely carry fomepazole in the pharmacy, but we have located 3 vials and will start 15mg/kg iv load followed by 10mg/kg iv q12h. will check serial osm and osm gap. iv thiamine, pyridoxine , leucovorin. very critically ill. minimal improvements over last 12 hours. discussed condition with and reinforced the severity of her illness. 11/28 Patient was extubated last night. Awake and alert. afebrile. Objective Vital Signs Date Time Temp Pulse Resp B/P (MAP) Pulse Ox O2 Delivery O2 Flow Rate FiO2 11/28/17 06:00 108 11/28/17 04:00 98.4 13 130/66 (87) 97 150/76 (100) 11/27/17 21:19 Nasal Cannula 3.00 11/27/17 19:18 40 Intake and Output 11/28/17 11/28/17 11/29/17 08:00 16:00 00:00 Intake Total 151 ml Output Total 1800 ml Balance -1649 ml Result Diagram: 11/28/17 0530 11/28/17 0530 Other Results Laboratory Tests Test 11/27/17 10:31 11/27/17 16:50 11/27/17 17:18 11/27/17 23:00 Blood Urea Nitrogen 5 MG/DL 5 MG/DL 5 MG/DL Creatinine 0.46 MG/DL 0.50 MG/DL 0.55 MG/DL Random Glucose 108 MG/DL 120 MG/DL 132 MG/DL Calcium Level 7.8 MG/DL 8.0 MG/DL 8.1 MG/DL Sodium Level 143 MEQ/L 141 MEQ/L 140 MEQ/L Potassium Level 3.8 MEQ/L 3.7 MEQ/L 3.6 MEQ/L Chloride Level 108 MEQ/L 105 MEQ/L 105 MEQ/L Carbon Dioxide Level 24.4 MEQ/L 26.9 MEQ/L 29.9 MEQ/L Anion Gap 11 MEQ/L 9 MEQ/L 5 MEQ/L Estimat Glomerular Filtration Rate 144 ML/MIN 131 ML/MIN 117 ML/MIN Serum Osmolality 308 MOSM/KG 298 MOSM/KG 290 MOSM/KG Lactic Acid Level 1.4 mmol/L 1.2 mmol/L 1.3 mmol/L Total Creatine Kinase 3453 U/L 2767 U/L 2345 U/L Creatine Kinase MB 18.1 NG/ML 10.7 NG/ML 5.6 NG/ML Creatine Kinase MB % 0.5 % 0.4 % 0.2 % Blood Gas Puncture Site ART LINE Blood Gas Patient Temperature 98.6 Blood Gas HCO3 27 mmol/L Blood Gas Base Excess 2.0 mmol/L Blood Gas Oxygen Saturation 95 % Arterial Blood pH 7.39 Arterial Blood Partial Pressure CO2 45 mmHg Arterial Blood Partial Pressure O2 94 mmHg Arterial Blood Oxygen Content 17.1 Vol % Arterial Blood Carboxyhemoglobin 0.9 % Arterial Blood Methemoglobin 1.3 % Blood Gas Hemoglobin 12.7 G/DL Oxygen Delivery Device VENTILATOR Blood Gas Ventilator Setting CPAP+5/PS+5 Blood Gas Inspired Oxygen 35 % Test 11/28/17 05:30 White Blood Count 19.1 TH/MM3 Red Blood Count 3.79 MIL/MM3 Hemoglobin 12.9 GM/DL Hematocrit 38.1 % Mean Corpuscular Volume 100.5 FL Mean Corpuscular Hemoglobin 34.1 PG Mean Corpuscular Hemoglobin Concent 33.9 % Red Cell Distribution Width 12.5 % Platelet Count 230 TH/MM3 Mean Platelet Volume 7.9 FL Blood Urea Nitrogen 5 MG/DL Creatinine 0.48 MG/DL Random Glucose 116 MG/DL Calcium Level 8.5 MG/DL Sodium Level 140 MEQ/L Potassium Level 3.8 MEQ/L Chloride Level 106 MEQ/L Carbon Dioxide Level 26.9 MEQ/L Anion Gap 7 MEQ/L Estimat Glomerular Filtration Rate 137 ML/MIN Serum Osmolality 299 MOSM/KG Lactic Acid Level 1.0 mmol/L Total Creatine Kinase 1837 U/L Creatine Kinase MB 3.5 NG/ML Creatine Kinase MB % 0.2 % Imaging Last Impressions Brain MRI 11/27/17 0000 Signed Impressions: Service Date/Time: Monday, November 27, 2017 11:17 - CONCLUSION: Normal examination. Mariano Flaherty MD Head CT 11/26/171729 Signed Impressions: Service Date/Time: Sunday, November 26, 2017 21:12 - CONCLUSION: No acute intracranial disease. Massimo Ervin MD Chest X-Ray 11/26/171729 Signed Impressions: Service Date/Time: Sunday, November 26, 2017 17:58 - CONCLUSION: 1. Adequate placement of endotracheal tube. 2. Left basal consolidation. Massimo Ervin MD Objective Remarks GENERAL: Middle-aged appearing female, lying in bed in [facility] HEENT: Normocephalic. Atraumatic. Pupils equal, round, reactive, conjugate. Mucous membranes are moist NECK: Trachea is midline. There is no JVD. CHEST: B/L equal air entry CARDIOVASCULAR: Normal rate, regular rhythm. Sinus by telemetry. ABDOMEN: Soft, nontender, nondistended. No guarding. MUSCULOSKELETAL: Pulses 2+. No peripheral edema. NEUROLOGICAL: Awake and alert A/P Assessment and Plan Plan by systems: Neurologic: Toxic encephalopathy- resolved Alcohol abuse Presumed Toxic Alcohol ingestion: suspect isopropyl alcohol Frequent neurochecks Avoid long-acting sedatives Watch for alcohol withdrawal CT brain 11/26- for acute disease MRI brain 11/27: No acute disease s/p Fomepizole 15mg/kg load, followed by 10mg/kg iv q12h. Respiratory: Acute hypoxic and hypercarbic respiratory failure Aspiration pneumonia Continue with oxygen keep sats> 90% Bronchodilators Cardiovascular: Monitor HR and BP keep MAP>65mmHg Renal: Monitor renal function, I/O's, electrolytes replacement per protocol Continue IVF - monitor CK's FEN/GI: Acute rhabdomyolysis- Possible alcoholic hepatitis Acute metabolic acidosis- resolved lactic acidosis- resolved Osmolar gap suspected isopropyl alcohol ingestion/toxicity/overdose Start PO diet Heme/ID: Aspiration pneumonia UTI Community-acquired, no suspicion for resistant bacteria On Unasyn IV- monitor for signs of infections ( Fever, WBC) Follow-up sputum culture Follow-up blood cultures, check urine cx Daily CBC Endocrine: Hyperglycemia of critical illness -- SSI, medium scale, every 6 Prophylaxis: GI Prophylaxis Pepcid DVT Prophylaxis -- SCDs Lovenox Lines: Peripheral IVs are adequate at this time Dispo: Level 2 Will sign of and transfer care to Franci Jimenes MD Nov 28, 2017 08:24
[2017-11-28] MEDS: MULTIVITAMIN TAB PO SCH (08:59)
[2017-11-28] MEDS: FAMOTIDINE 20 MG TAB PO SCH ×2 (09:00→21:06)
[2017-11-28] MEDS: DOCUSATE SODIUM 50 MG/SENNA 8.6 MG TAB PO SCH ×3 (09:00→21:06)
[2017-11-28 12:33] LABS: BICARBONATE 29.3 MEQ/L (21.0-32.0); CALCIUM 8.8 MG/DL (8.5-10.1); CREATININE 0.57 MG/DL (0.50-1.00)
--- NOTE | 2017-11-28 19:12 | MG ---
cc: David Foster MD EEG NUMBER: [id number] INDICATION: 52-year-old, intubated. MRI normal. Alcohol intake. Thiamin. FINDINGS: The recording shows a diffuse 7 Hz slowing. The recording overall is synchronous and symmetric. No major hemisphere asymmetry is noted. No epileptiform or seizure activity is seen. Hyperventilation is not performed. Photic stimulation is performed without significant posterior driving. IMPRESSION: Some mild diffuse theta slowing, otherwise unremarkable EEG. No focal abnormality was noted. No seizure activity was seen. MD GA Valdez/EARL , 07:03 PM , 07:10 PM
--- NOTE | 2017-11-28 21:18 | EKG ---
Date Performed: 11/27/2017 Time Performed: 16:05:45 PTAGE: 52 years EKG: SINUS TACHYCARDIA POSSIBLE ANTERIOR MYOCARDIAL INFARCTION , PROBABLY OLD ABNORMAL RHYTHM EC G PREVIOUS TRACING : 11/26/2017 18.30 Since the previous tracing, no significant change noted DOCTOR: Felix Choudhary Interpretating Date/Time 11/28/2017 21:17:53
[2017-11-28] MEDS: ENOXAPARIN SODIUM 40 MG/0.4 ML SYRINGE SQ SCH (22:26)
[2017-11-29] VITALS (7 sets, daily range): BP systolic 153–154; BP diastolic 75–98; PULSE 82–103; RESP 14–15; TEMP 98–99; O2SAT 95–99
[2017-11-29] MEDS: AMPICILLIN-SULBACTAM INJ 3 GM in SODIUM CHLORIDE 0.9% INJ 100 ML IV SCH ×2 (03:36→08:14)
[2017-11-29] MEDS: LACTATED RINGER'S 1000 ML INJ 1,000 ML IV SCH (03:36)
[2017-11-29] MEDS: CHLORHEXIDINE GLUCONATE 2 % 1 PACK (2 CLOTHS) TOP SCH (04:00)
[2017-11-29] MEDS: RESP: ALBUTEROL 2.5 MG/IPRATROPIUM 0.5 MG NEB (SCH) INH ×2 (05:07→09:23)
[2017-11-29] MEDS: INSULIN NovoLIN REGULAR SUPPLEMENTAL SCALE SQ SCH ×2 (06:00)
[2017-11-29 06:18] LABS: AUTOMATED NEUTROPHIL # 7.3 TH/MM3 (1.8-7.7); BASOPHIL # 0.1 TH/MM3 (0-0.2); EOSINOPHIL # 0.1 TH/MM3 (0-0.4); EOSINOPHIL % 0.9 % (0.0-4.0); HEMATOCRIT 36.7 % (35.0-46.0); HEMOGLOBIN 12.5 GM/DL (11.6-15.3); LYMPH % 15.7 % (9.0-44.0); LYMPHOCYTE # 1.5 TH/MM3 (1.0-4.8); MEAN CELL VOLUME 100.4 FL (80.0-100.0); MEAN CORPUSCULAR HEMOGLOBIN 34.1 PG (27.0-34.0); MEAN PLATELET VOLUME 8.4 FL (7.0-11.0); MONO % 6.5 % (0.0-8.0); MONOCYTE # 0.6 TH/MM3 (0-0.9); NEUT % 75.9 % (16.0-70.0); PLATELET COUNT 238 TH/MM3 (150-450); RED BLOOD COUNT 3.66 MIL/MM3 (4.00-5.30); RED CELL DISTRIBUTION WIDTH 12.3 % (11.6-17.2); WHITE BLOOD COUNT 9.6 TH/MM3 (4.0-11.0)
[2017-11-29 06:49] LABS: ALBUMIN 2.7 GM/DL (3.4-5.0); ALKALINE PHOSPHATASE 78 U/L (45-117); ALT (GPT) 29 U/L (10-53); AST (GOT) 72 U/L (15-37); BICARBONATE 27.9 MEQ/L (21.0-32.0); BLOOD UREA NITROGEN 3 MG/DL (7-18); CALCIUM 8.6 MG/DL (8.5-10.1); CHLORIDE 107 MEQ/L (98-107); GLOMERULAR FILTRATION RATE 131 ML/MIN (>89); GLUCOSE,RANDOM 94 MG/DL (74-106); MAGNESIUM 1.8 MG/DL (1.5-2.5); SODIUM (NA) 144 MEQ/L (136-145); TOTAL BILIRUBIN ADULT 1.2 MG/DL (0.2-1.0); TOTAL PROTEIN 6.5 GM/DL (6.4-8.2)
[2017-11-29] MEDS: CHLORHEXIDINE 0.12% (ORAL KIT) 15 ML CUP MT SCH (08:00)
[2017-11-29] MEDS: DOCUSATE SODIUM 50 MG/SENNA 8.6 MG TAB PO SCH (08:14)
[2017-11-29] MEDS: MULTIVITAMIN TAB PO SCH (08:14)
[2017-11-29] MEDS: FAMOTIDINE 20 MG TAB PO SCH (08:14)
[2017-11-29] MEDS: POTASSIUM CHLORIDE 25 MEQ EFFERVESCENT TAB PO PRN (08:15)
--- NOTE | 2017-11-29 10:20 | HHI.PR ---
Subjective Remarks Follow-up toxic encephalopathy/community acquired pneumonia November 29, 2017-patient seen and examined, alert and oriented 3, denies any chest pain or shortness of breath. She will no longer drink when she goes home. She will follow with AA meeting Objective Vitals Vital Signs Date Time Temp Pulse Resp B/P (MAP) Pulse Ox O2 Delivery O2 Flow Rate FiO2 11/29/17 10:00 103 11/29/17 09:23 95 21 11/29/17 08:00 98.0 88 14 153/98 (116) 98 11/29/17 08:00 88 11/29/17 06:00 82 11/29/17 04:00 82 11/29/17 04:00 99.0 82 15 154/80 (104) 99 11/29/17 02:00 82 11/29/17 00:00 98.9 90 14 154/75 (101) 98 11/29/17 00:00 90 11/28/17 22:00 97 11/28/17 21:54 96 21 11/28/17 20:00 99.2 99 14 159/77 (104) 94 11/28/17 20:00 99 11/28/17 18:00 107 11/28/17 16:00 98.6 109 16 150/71 (97) 93 11/28/17 16:00 112 11/28/17 14:00 112 11/28/17 12:00 109 11/28/17 12:00 99.0 112 20 164/80 (108) 93 I/O 11/28/17 11/28/17 11/28/17 11/29/17 11/29/17 11/29/17 07:00 15:00 23:00 07:00 15:00 23:00 Intake Total 151 ml 1447 ml 1340 ml Output Total 1800 ml 2502 ml Balance -1649 ml -1055 ml 1340 ml Intake Oral 50 ml 800 ml 240 ml IV Total 101 ml 647 ml 1100 ml Output Urine Total 1800 ml 2500 ml Stool Total 0 ml 2 ml # Voids 2 # Bowel Movements 0 Result Diagram: 11/29/17 0515 11/29/17 0515 Imaging Last Impressions Brain MRI 11/27/17 0000 Signed Impressions: Service Date/Time: Monday, November 27, 2017 11:17 - CONCLUSION: Normal examination. Mariano Flaherty MD Head CT 11/26/170 Signed Impressions: Service Date/Time: Sunday, November 26, 2017 21:12 - CONCLUSION: No acute intracranial disease. Massimo Ervin MD Chest X-Ray 11/26/171729 Signed Impressions: Service Date/Time: Sunday, November 26, 2017 17:58 - CONCLUSION: 1. Adequate placement of endotracheal tube. 2. Left basal consolidation. Massimo Ervin MD Objective Remarks GENERAL: NAD SKIN: Warm and dry. HEAD: Normocephalic. EYES: No scleral icterus. No injection or drainage. NECK: Supple, trachea midline. No JVD or lymphadenopathy. CARDIOVASCULAR: Regular rate and rhythm without murmurs, gallops, or rubs. RESPIRATORY: Breath sounds equal bilaterally. No accessory muscle use. GASTROINTESTINAL: Abdomen soft, non-tender, nondistended. MUSCULOSKELETAL: No cyanosis, or edema. BACK: Nontender without obvious deformity. No CVA tenderness. Procedures None A/P Problem List: (1) Respiratory failure ICD Code: J96.90 - Respiratory failure, unspecified, unspecified whether with hypoxia or hypercapnia Status: Acute (2) Pneumonia ICD Code: J18.9 - Pneumonia, unspecified organism Status: Acute Assessment and Plan 52 years old female with Toxic encephalopathy- resolved Alcohol abuse Presumed Toxic Alcohol ingestion: suspect isopropyl alcohol Frequent neuro checks Avoid long-acting sedatives Watch for alcohol withdrawal CT brain 11/26- for acute disease MRI brain 11/27: No acute disease s/p Fomepizole 15mg/kg load, followed by 10mg/kg iv q12h. Acute hypoxic and hypercarbic respiratory failure-resolved Aspiration pneumonia Continue with oxygen keep sats> 90%; extubated on 11/27/17 On Unasyn IV, with switched to p.o. azithromycin Bronchodilators Acute rhabdomyolysis- Possible alcoholic hepatitis Acute metabolic acidosis- resolved lactic acidosis- resolved Osmolar gap suspected isopropyl alcohol ingestion/toxicity/overdose s/p Fomepizole 15mg/kg load, followed by 10mg/kg iv q12h. Continue IV fluid hydration Aspiration pneumonia UTI Community-acquired, no suspicion for resistant bacteria On Unasyn IV, with switched to p.o. azithromycin Follow-up sputum culture Follow-up blood cultures, check urine cx Hyperglycemia of critical illness-resolved Prophylaxis: GI Prophylaxis Pepcid DVT Prophylaxis -- SCDs Lovenox Problem Qualifiers (1) Respiratory failure: Qualified Codes: J96.01 - Acute respiratory failure with hypoxia (2) Pneumonia: Qualified Codes: J18.1 - Lobar pneumonia, unspecified organism Massimo Crocker MD November 29, 2017 10:20
--- NOTE | 2017-11-29 10:29 | HHI.DS ---
Discharge Summary Admission Date Nov 26, 2017 at 19:15 Discharge Date: November 29, 2017 Admitting Diagnosis Respiratory failure. Pneumonia. (1) Respiratory failure ICD Code: J96.90 - Respiratory failure, unspecified, unspecified whether with hypoxia or hypercapnia Status: Acute (2) Pneumonia ICD Code: J18.9 - Pneumonia, unspecified organism Status: Acute Procedures None Brief History - From Admission This is a 52-year-old female who is brought in by EMS for altered mental status. Per the ER physician's note, the agents has been reported that she had been drinking alcohol all last night and then has not woken up since that time. The patient's was unclear if there were other drugs involved per the ER note. On arrival to the emergency department, the patient was lethargic. IV Narcan did not improve the patient's mental status. Due to her acute obtundation as well as hypercarbic and hypoxic respiratory failure, she was emergently intubated in the emergency department. On my evaluation, the patient is intubated and obtunded. No additional information is available from the patient. Review of systems is unobtainable. Laboratory evidence the emergency department is significant for white blood cell count 15,000, anion gap elevated of 16, bicarb of 20, AST/ALT 68/27, GGT 93, CK of 1879, CK-MB of 16.3 with a normal MB ratio, troponin less than 0.02. CBC/BMP: 11/29/17 0515 11/29/17 0515 Significant Findings Laboratory Tests Test 11/26/17 17:25 11/26/17 18:00 11/26/17 20:43 11/26/17 20:50 White Blood Count 15.6 TH/MM3 (4.0-11.0) Mean Corpuscular Volume 100.9 FL (80.0-100.0) Neutrophils (%) (Auto) 85.3 % (16.0-70.0) Lymphocytes (%) (Auto) 7.9 % (9.0-44.0) Neutrophils # (Auto) 13.3 TH/MM3 (1.8-7.7) Monocytes # (Auto) 1.0 TH/MM3 (0-0.9) Random Glucose 115 MG/DL (74-106) Calcium Level 7.8 MG/DL (8.5-10.1) Aspartate Amino Transf (AST/SGOT) 68 U/L (15-37) Total Bilirubin 0.0 MG/DL (0.2-1.0) Carbon Dioxide Level 20.6 MEQ/L (21.0-32.0) Anion Gap 16 MEQ/L (5-15) Estimat Glomerular Filtration Rate 65 ML/MIN (>89) Total Creatine Kinase 1879 U/L (26-192) Creatine Kinase MB 16.3 NG/ML (0.5-3.6) Troponin I LESS THAN 0.02 NG/ML Salicylates Level LESS THAN 1.7 MG/DL Acetaminophen Level LESS THAN 2.0 MCG/ML Gamma Glutamyl Transpeptidase 93 U/L (5-55) Blood Gas HCO3 21 mmol/L (22-26) Blood Gas Base Excess -3.9 mmol/L (-2-2) Arterial Blood pH 7.32 (7.380-7.420) Test 11/26/17 21:30 11/26/17 22:45 11/26/17 23:50 11/27/17 02:00 Blood Urea Nitrogen 6 MG/DL (7-18) Calcium Level 7.7 MG/DL (8.5-10.1) Chloride Level 109 MEQ/L (98-107) Carbon Dioxide Level 16.5 MEQ/L (21.0-32.0) Anion Gap 18 MEQ/L (5-15) Serum Osmolality 372 MOSM/KG (275-295) Total Creatine Kinase 4619 U/L (26-192) Creatine Kinase MB 30.2 NG/ML (0.5-3.6) Troponin I LESS THAN 0.02 NG/ML Urine Turbidity HAZY (CLEAR) Urine Ketones 80 mg/dL (NEG) Urine Leukocyte Esterase LARGE (NEG) Urine RBC 7 /hpf (0-3) Urine WBC 116 /hpf (0-5) Urine WBC Clumps FEW (NONE) Urine Bacteria FEW /hpf (NONE) Urine Mucus FEW /lpf (OCC) Test 11/27/17 02:05 11/27/17 02:15 11/27/17 04:05 11/27/17 05:00 Lactic Acid Level 3.6 mmol/L (0.4-2.0) 2.4 mmol/L (0.4-2.0) Blood Gas Base Excess -2.8 mmol/L (-2-2) Arterial Blood pH 7.33 (7.380-7.420) Arterial Blood Partial Pressure CO2 43 mmHg (38-42) B-Hydroxybutyrate 0.84 MMOL/L (0.00-0.39) White Blood Count 20.7 TH/MM3 (4.0-11.0) Red Blood Count 3.92 MIL/MM3 (4.00-5.30) Mean Corpuscular Hemoglobin 34.2 PG (27.0-34.0) Blood Urea Nitrogen 5 MG/DL (7-18) Random Glucose 120 MG/DL (74-106) Calcium Level 7.2 MG/DL (8.5-10.1) Chloride Level 108 MEQ/L (98-107) Serum Osmolality 335 MOSM/KG (275-295) Protein Corrected Calcium 7.5 MG/DL (8.5-10.1) Total Creatine Kinase 4339 U/L (26-192) Creatine Kinase MB 25.2 NG/ML (0.5-3.6) Test 11/27/17 10:31 11/27/17 16:50 11/27/17 17:18 11/27/17 23:00 Blood Urea Nitrogen 5 MG/DL (7-18) 5 MG/DL (7-18) 5 MG/DL (7-18) Creatinine 0.46 MG/DL (0.50-1.00) Random Glucose 108 MG/DL (74-106) 120 MG/DL (74-106) 132 MG/DL (74-106) Calcium Level 7.8 MG/DL (8.5-10.1) 8.0 MG/DL (8.5-10.1) 8.1 MG/DL (8.5-10.1) Chloride Level 108 MEQ/L (98-107) Serum Osmolality 308 MOSM/KG (275-295) 298 MOSM/KG (275-295) Total Creatine Kinase 3453 U/L (26-192) 2767 U/L (26-192) 2345 U/L (26-192) Creatine Kinase MB 18.1 NG/ML (0.5-3.6) 10.7 NG/ML (0.5-3.6) 5.6 NG/ML (0.5-3.6) Blood Gas HCO3 27 mmol/L (22-26) Arterial Blood Partial Pressure CO2 45 mmHg (38-42) Test 11/28/17 05:30 11/28/17 12:00 11/29/17 05:15 White Blood Count 19.1 TH/MM3 (4.0-11.0) Red Blood Count 3.79 MIL/MM3 (4.00-5.30) 3.66 MIL/MM3 (4.00-5.30) Mean Corpuscular Volume 100.5 FL (80.0-100.0) 100.4 FL (80.0-100.0) Mean Corpuscular Hemoglobin 34.1 PG (27.0-34.0) 34.1 PG (27.0-34.0) Blood Urea Nitrogen 5 MG/DL (7-18) 5 MG/DL (7-18) 3 MG/DL (7-18) Creatinine 0.48 MG/DL (0.50-1.00) Random Glucose 116 MG/DL (74-106) 144 MG/DL (74-106) Serum Osmolality 299 MOSM/KG (275-295) Total Creatine Kinase 1837 U/L (26-192) Neutrophils (%) (Auto) 75.9 % (16.0-70.0) Albumin 2.7 GM/DL (3.4-5.0) Phosphorus Level 2.0 MG/DL (2.5-4.9) Aspartate Amino Transf (AST/SGOT) 72 U/L (15-37) Total Bilirubin 1.2 MG/DL (0.2-1.0) Potassium Level 3.4 MEQ/L (3.5-5.1) Imaging Last Impressions Brain MRI 11/27/17 0000 Signed Impressions: Service Date/Time: Monday, November 27, 2017 11:17 - CONCLUSION: Normal examination. Mariano Flaherty MD Head CT [id number] Signed Impressions: Service Date/Time: Sunday, November 26, 2017 21:12 - CONCLUSION: No acute intracranial disease. Massimo Ervin MD Chest X-Ray [id number] Signed Impressions: Service Date/Time: Sunday, November 26, 2017 17:58 - CONCLUSION: 1. Adequate placement of endotracheal tube. 2. Left basal consolidation. Massimo Ervin MD PE at Discharge GENERAL: NAD SKIN: Warm and dry. HEAD: Normocephalic. EYES: No scleral icterus. No injection or drainage. NECK: Supple, trachea midline. No JVD or lymphadenopathy. CARDIOVASCULAR: Regular rate and rhythm without murmurs, gallops, or rubs. RESPIRATORY: Breath sounds equal bilaterally. No accessory muscle use. GASTROINTESTINAL: Abdomen soft, non-tender, nondistended. MUSCULOSKELETAL: No cyanosis, or edema. BACK: Nontender without obvious deformity. No CVA tenderness. Hospital Course While in hospital, patient was treated for: Toxic encephalopathy- resolved Alcohol abuse Presumed Toxic Alcohol ingestion: suspect isopropyl alcohol Frequent neuro checks Avoid long-acting sedatives Watch for alcohol withdrawal CT brain 11/26- for acute disease MRI brain 11/27: No acute disease s/p Fomepizole 15mg/kg load, followed by 10mg/kg iv q12h. Acute hypoxic and hypercarbic respiratory failure-resolved Aspiration pneumonia Continue with oxygen keep sats> 90%; extubated on 11/27/17 On Unasyn IV, with switched to p.o. azithromycin Bronchodilators Acute rhabdomyolysis- Possible alcoholic hepatitis Acute metabolic acidosis- resolved lactic acidosis- resolved Osmolar gap suspected isopropyl alcohol ingestion/toxicity/overdose s/p Fomepizole 15mg/kg load, followed by 10mg/kg iv q12h. Continue IV fluid hydration Aspiration pneumonia UTI Community-acquired, no suspicion for resistant bacteria On Unasyn IV, with switched to p.o. azithromycin Follow-up sputum culture Follow-up blood cultures, check urine cx Hyperglycemia of critical illness-resolved Prophylaxis: GI Prophylaxis Pepcid DVT Prophylaxis -- SCDs Lovenox Pt Condition on Discharge: Good Discharge Disposition: Discharge Home Discharge Time: <= 30 minutes Discharge Instructions DIET: Follow Instructions for: Heart Healthy Diet Follow up Referrals: PCP Follow-up - 1 Week New Medications: Azithromycin (Azithromycin) 250 Mg Tab 250 MG PO DAILY for Infection, #5 TAB Continued Medications: Folic Acid (Folic Acid) 0.4 Mg Tab 400 MCG PO DAILY for Nutritional Supplement, TAB 0 Refills Thiamine (Vitamin B-1) 100 Mg Tab 100 MG PO DAILY for Nutritional Supplement, TAB 0 Refills Massimo Crocker MD November 29, 2017 10:29
[2017-11-29] MEDS ORDERED: AZIT250T3 PO (10:31)
[2017-11-30] MEDS ORDERED: AZITHROMYCIN 250 MG TAB PO SCH (09:00)
[2017-11-30] MEDS ORDERED: THIAMINE HCL 100 MG TAB PO SCH (09:00)
== END 2017-11-29 11:50 | disposition home or self-care (01) | DRG 208 ==
LOC: NEPC 17:14 → NEDA 19:15 → HIMN 21:25
PROVIDERS: ADMIT Hospitalist; ATTEND Hospitalist
PROC: 5A1945Z Respiratory Ventilation, 24-96 Consecutive Hours (ICD-10-PCS; principal; 2017-11-26)
PROC: 0BH17EZ Insertion of Endotracheal Airway into Trachea, Via Natural or Artificial Opening (ICD-10-PCS; 2017-11-26)
PROC: 03HY32Z Insertion of Monitoring Device into Upper Artery, Percutaneous Approach (ICD-10-PCS; 2017-11-27)
DX: J96.02 Acute respiratory failure with hypercapnia (principal); J69.0 Pneumonitis due to inhalation of food and vomit; G92 Toxic encephalopathy; F10.188 Alcohol abuse with other alcohol-induced disorder; E87.2 Acidosis; M62.82 Rhabdomyolysis; J96.01 Acute respiratory failure with hypoxia; R73.9 Hyperglycemia, unspecified
CPT/HCPCS: 31500; 36600; 51702; 70450; 70551; 71045; 80048; 80053; 80307; 81001; 82010; 82140; 82550; 82552; 82805; 82948; 82977; 83605; 83735; 83930; 83935; 84100; 84155; 84443; 84484; 84702; 85025; 85027; 85610; 85730; 87040; 87070; 87086; 87205; 87641; 93005; 94002; 94003; 94150; 94640; 94664; 95819; 96365; 96375; J0295; J0330; J0640; J0696; J1451; J1650; J2060; J2250; J3010; J3370; J3411; J3415; J3480; J7030; J7050; J7120